=== PATIENT | male | born 1975 | race Caucasian/White ===

== ENCOUNTER 2020-04-29 02:13 | Outpatient (CLI) | payer OTHER, SELFPAY ==
[2020-04-29 12:43] LABS: Hemoglobin A1C 5.1 % (<5.7)
[2020-04-29 12:56] LABS: ALT 24 U/L (16-63); AST 15 U/L (15-37); Albumin 4.2 g/dL (3.4-5.0); Alkaline Phosphatase 54 U/L (46-116); Anion Gap 9.5 mmol/L (3-11); BUN 12 mg/dL (7-18); Bilirubin, Total 1.1 mg/dL (0.2-1.0); CO2 28.5 mmol/L (21.0-32.0); CREATININE 1.04 mg/dL (0.70-1.30); Calcium 8.7 mg/dL (8.5-10.1); Calculated LDL 39 mg/dL (<100); Chloride 106 mmol/L (98-107); Cholesterol 117 mg/dL (<200); Glucose 113 mg/dL (74-106); HDL Cholesterol 69 mg/dL (40-60); Potassium 4.1 mmol/L (3.5-5.1); Sodium 144 mmol/L (136-145); Total Protein 6.7 g/dL (6.4-8.2); Triglyceride 49 mg/dL (<150)
== END 2020-04-29 02:33 ==
PROVIDERS: PCP Nurse Practitioner Family; Visit Provider Nurse Practitioner Family
DX: I25.10 Atherosclerotic heart disease of native coronary artery without angina pectoris (principal); Z13.220 Encounter for screening for lipoid disorders; Z13.1 Encounter for screening for diabetes mellitus
CPT/HCPCS: 36415; 80053; 80061; 83036

== ENCOUNTER 2020-08-12 01:51 | Outpatient (CLI) | payer OTHER, SELFPAY ==
--- NOTE | 2020-08-12 10:32 | DI.MRI_ITS ---
EXAM: MR PELVIS WO CLINICAL HISTORY: Post-herniorrhaphy neuralgia, ?mesh displaced,RLQ/GROIN PAIN,R10.31,M79.2 TECHNIQUE: Multiplanar multisequence MRI of Pelvis was performed. CONTRAST MATERIAL: IV Contrast: None COMPARISON: No exams were available for comparison FINDINGS: Bones: There is no evidence of hip fracture, avascular necrosis of the hips, nor hip joint effusions . There is no significant signal abnormality at the level of the sacroiliac joints. No significant findings within the sacral canal. No osseous lesions evident. Musculotendinous structures: No abnormal intramuscular signal. No evidence of hip bursitis. No avul grey injuries evident. No abnormal signal in the visualized lower lumbar spine nor within the sacral canal. Soft tissue: Prostate gland is not enlarged. Seminal vesicles unremarkable. The urinary bladder is not distended. There is no evidence of inguinal at adenopathy nor intrapelvic adenopathy. No abnorm al fluid collection in the pelvis. No evidence of inguinal hernia. No aneurysms. No abnormal fluid collections. IMPRESSION: No significant findings on this MRI scan of pelvis. DATA REPOSITORY:
== END 2020-08-12 01:52 ==
LOC: DI 01:52
PROVIDERS: PCP Nurse Practitioner Family; Visit Provider Nurse Practitioner Family
DX: R10.31 Right lower quadrant pain (principal); M79.2 Neuralgia and neuritis, unspecified; G89.29 Other chronic pain
CPT/HCPCS: 72195

== ENCOUNTER 2021-02-13 19:20 | Outpatient (REF) | payer OTHER, SELFPAY ==
[2021-02-18 09:22] LABS: Codeine Negative ng/mL (Cutoff: 25); Dihydrocodeine 252 ng/mL (Cutoff: 25); Hydrocodone 1722 ng/mL (Cutoff: 25); Hydromorphone 97 ng/mL (Cutoff: 25); Morphine Negative ng/mL (Cutoff: 25); Naloxone Negative ng/mL (Cutoff: 25); Norhydrocodone 998 ng/mL (Cutoff: 25); Noroxycodone Negative ng/mL (Cutoff: 25); Noroxymorphone Negative ng/mL (Cutoff: 25); Opiates Interpretation Positive.
== END 2021-02-13 19:21 | disposition home or self-care (01) ==
LOC: LBN 19:20
PROVIDERS: PCP Nurse Practitioner Family; Visit Provider Nurse Practitioner Family
DX: R10.31 Right lower quadrant pain (principal); G89.29 Other chronic pain
CPT/HCPCS: 80361; 80362; 80365

== ENCOUNTER 2021-05-30 09:01 | Emergency (ER) | payer OTHER, SELFPAY ==
--- NOTE | 2021-05-30 09:00 | RT.EKG_ITS ---
APPROVED REPORT Exam: Resting ECG Reason for Exam: POSS STROKE Patient Location: E HR:72 bpm ECG Measurements Heart Rate 72 AXIS UT 137 P 63 QRSd 97 QRS 82 QT 396 T 28 QTc 433 Conclusion Sinus rhythm...normal P axis, V-rate 60- 99
[2021-05-30 09:11] VITALS: BP 153/89; PULSE 72; RESP 18; TEMP 37.2; O2SAT 99
[2021-05-30 09:17] VITALS: RESP 18
--- NOTE | 2021-05-30 09:30 | DI.CT_ITS ---
Exam(s) CT BRAIN NECK CTA EXAM: CT BRAIN NECK CTA CLINICAL HISTORY: left neck pain, left leg paresthesias. TECHNIQUE: Imaging Protocol: Axial CT angiography was performed with multi-slice acquisition and mu lti-planar and/or 3D reconstructions. CONTRAST MATERIAL: Intravenous: Omnipaque 350 Contrast volume:100 mL COMPARISON: No exams were available for comparison FINDINGS: CT Head W/O and W: Ventricles and Extra axial spaces: Normal in size and morphology for the patient's age. Hemorrhage: None. Cerebral parenchyma: No evidence of an acute territorial infarct. Midline shift: None. Brainstem/Cerebellum: Normal. Calvarium: Normal. Visualized Paranasal sinuses/Mastoids: There is mucosal thickening in the visualized paranasal sinuse s. There is a fluid level in the right sphenoid sinus. The mastoid air cells are clear. Soft Tissues: Unremarkable. Enhancement: Unremarkable. CTA Neck W: Common Carotid: Right: No dissection, occlusion or significant stenosis. Left: No dissection, occlusion or significant stenosis. External Carotid: Right: No occlusion or significant stenosis. Left: No occlusion or significant stenosis. Internal Carotid: Right: No dissection, occlusion or significant stenosis. Left: No dissection, occlusion or significant stenosis. Vertebral Artery: Right: No dissection, occlusion or significant stenosis. Left: No dissection, occlusion or significant stenosis. Lung Apices: Normal. The visualized pulmonary arteries and thoracic aorta are unremarkable. Bones: Within normal limits for the patient's age. Soft Tissues: Normal. Thyroid gland: Unremarkable. CTA Brain W: Internal Carotid Arteries: Normal. Anterior Cerebral Arteries: Right: No aneurysm, occlusion or significant stenosis. Left: No aneurysm, occlusion or significant stenosis. Middle Cerebral Arteries: Right: No aneurysm, occlusion or significant stenosis. Left: No aneurysm, occlusion or significant stenosis. Posterior Cerebral Arteries: Right: No aneurysm, occlusion or significant stenosis. Left: No aneurysm, occlusion or significant stenosis. Vertebral Arteries: Right: No aneurysm, occlusion or significant stenosis. Left: No aneurysm, occlusion or significant stenosis. Basilar Artery: No aneurysm, occlusion or significant stenosis. IMPRESSION: 1. No large vessel occlusion or significant stenosis on the CT angiography of the head. 2. No acute intracranial process. 3. Findings of paranasal sinus disease. 4. No occlusion or significant stenosis on the CT angiography of the neck. 5. Results of this exam have been verbally communicated with provider. RADIATION DOSE DELIVERED: 2,325.68mGy.cm Total DLP DATA REPOSITORY: All CT scans at this facility are submitted to the National Radiology Data Registry (NRDR) Dose Index Registry (DIR) with the [employer] (A[employer]). RADIATION OPTIMIZATION: All CT scans at this facility use at least one of these dose optimization te chniques: automated exposure control; mA and/or kV adjustment per patient size (includes targeted exa ms where dose is matched to clinical indication); or iterative reconstruction.
--- NOTE | 2021-05-30 09:45 | DI.RAD_ITS ---
Exam(s) XR PORTABLE CHEST AP EXAM: XR PORTABLE CHEST AP CLINICAL HISTORY: cva TECHNIQUE: 2D digital imaging was performed of the chest. One image was obtained. An AP view was ob tained. COMPARISON: CR PORTABLE CHEST ONE VIEW from 02/08/2014 CR PORTABLE CHEST ONE VIEW from 02/08/2014 FINDINGS: MEDIASTINUM: Normal. HEART: Normal. PULMONARY VASCULATURE: Normal. LUNGS: Clear. PLEURAL SPACE: No pleural effusion or pneumothorax. BONE:Within normal limits for the patient's age. OTHER FINDINGS:Normal. IMPRESSION: No acute pulmonary findings. DATA REPOSITORY: RADIATION DOSE DELIVERED:
[2021-05-30] MEDS: Omnipaque 350 MG/ML 100 ML BTL IJ (10:07)
[2021-05-30 10:22] LABS: Abs Immature Grans 0.03 10^3/uL (0.0-0.06); Absolute Basophil Count 0.07 10^3/uL (0.0-0.2); Absolute Eosinophil Count 0.19 10^3/uL (0.0-0.7); Absolute Lymphocyte Count 1.45 10^3/uL (1.2-3.4); Absolute Monocyte Count 0.55 10^3/uL (0.1-0.8); Basophils % 0.8; Eosinophils % 2.2; HCT 44.5 % (40.0-50.0); HGB 14.4 g/dL (13.5-17.5); Immature Grans % 0.4; Lymphocytes % 17.1; MCH 29.4 pg (27.0-33.0); MCHC 32.4 % (32.0-36.0); MPV 9.6 fL (8.0-11.0); Monocytes % 6.5; Nucleated RBC 0 %; Platelet Count 315 10^3/uL (130-400); RBC 4.89 10^6/uL (4.36-5.78); RDW 12.1 % (11.8-14.1); RDW-SD 40.5 fL; WBC 8.49 10^3/uL (4.4-10.8)
[2021-05-30 10:37] LABS: ALT 30 U/L (16-63); AST 26 U/L (15-37); Albumin 3.9 g/dL (3.4-5.0); Alkaline Phosphatase 62 U/L (46-116); Anion Gap 7.8 mmol/L (3-11); BUN 11 mg/dL (7-18); Bilirubin, Total 1.4 mg/dL (0.2-1.0); CO2 29.2 mmol/L (21.0-32.0); CREATININE 0.9 mg/dL (0.70-1.30); Calcium 8.9 mg/dL (8.5-10.1); Chloride 107 mmol/L (98-107); Glucose 110 mg/dL (74-106); Magnesium 1.9 mg/dL (1.8-2.4); Potassium 3.6 mmol/L (3.5-5.1); Sodium 144 mmol/L (136-145); Total Protein 6.7 g/dL (6.4-8.2)
[2021-05-30 10:39] LABS: Troponin I < 0.05 ng/mL (<0.06)
--- NOTE | 2021-05-30 10:45 | DI.MRI_ITS ---
Exam(s) MR BRAIN WO EXAM: MR BRAIN WO CLINICAL HISTORY: left leg paresthesia TECHNIQUE: Multiplanar multisequence MRI of the brain was performed. COMPARISON: CT CT BRAIN NECK CTA from 05/30/2021 FINDINGS: VENTRICLES AND EXTRA AXIAL SPACES: Normal in size and morphology for the patient's age. MIDLINE SHIFT: None. CEREBRAL PARENCHYMA: No focus of restricted diffusion to suggest acute infarct. No space-occupying le grey identified. HEMORRHAGE: None. BRAINSTEM/CEREBELLUM: Normal. CALVARIUM: Normal. VISUALIZED PARANASAL SINUSES/MASTOIDS:Mucosal thickening in visualized paranasal sinuses. [place] OF [place]: Normal flow void. PITUITARY GLAND: Unremarkable. OTHER FINDINGS: None. IMPRESSION: 1. No acute intracranial process. 2. Results of this exam have been verbally communicated with provider. DATA REPOSITORY:
--- NOTE | 2021-05-30 10:53 | ED.GENADUL_ITS ---
Discharge Plan Disposition Patient Disposition: HOME Condition: Stable Discharge Details Clinical Impression: Brain TIA Primary Care Provider: Zhanna Jimenez ED Provider: Holly Hooper Home Meds and New Rx's Prescriptions: New clopidogrel [Plavix] 75 mg tablet 75 mg PO DAILY Qty: 30 RF: 0 Continued clotrimazole 1 % cream 1 applic TP BID 28 Days Qty: 45 RF: 3 hydrocodone-acetaminophen 5-325 mg tablet 1 tab PO DAILY MDD 1 tab PRN (Reason: pain) Qty: 30 RF: 0 Narcan 4 mg/actuation spray,non-aerosol 1 spray intranasal Q2-3M PRN (Reason: opioid overdose) Qty: 2 RF: 4 aspirin [Aspirin Low-Strength] 81 MG tablet,chewable 81 mg PO DAILY RF: 0 atorvastatin 80 mg tablet 80 mg PO DAILY Qty: 90 RF: 4 metoprolol succinate 25 mg tablet extended release 24 hr 25 mg PO DAILY Qty: 90 RF: 4 mirtazapine [Remeron] 30 mg tablet 30 mg PO QPM Qty: 90 RF: 4 nitroglycerin 0.4 mg tablet, sublingual 0.4 mg SL ONCE PRN (Reason: chest pain) Qty: 60 RF: 0 clonazepam [Klonopin] 1 mg tablet 1 mg PO BID Qty: 60 RF: 0 Discontinued omeprazole 40 mg capsule,delayed release(DR/EC) 40 mg PO BID Qty: 180 RF: 4 Discharge Instructions Additional Instructions: Please follow-up with the neurologist listed below Please also follow-up with your primary care physician Add Plavix to your regimen of medication until you are reassessed by neurology or your primary care physician Please return immediately should you have recurrent, new, or worsening complaints Discontinue your omeprazole temporarily Referrals: Zhanna Jimenez NP [Primary Care Provider] - Felicitas Santiago MD [ [facility] STAFF PHYSICIAN] - Discharge Data Discharge Date/Time-TO BE ENTERED AT DEPARTURE: 05/30/21 13:13 Medical Decision Making Patient with nonfocal neurological exam Given initial presenting symptoms of left lower extremity paresthesia, patient did have CTA head and cervical spine that did not show acute abnormality per radiology interpretation in my review EKG, troponin, and diagnostic labs do not show acute abnormality, patient appears well, he is conversive in complete sentences MRI ordered for completeness without acute abnormality Had echocardiogram in 2013 that did not show valvular abnormality On appropriate regimen with Lipitor, metoprolol, and aspirin, will add Plavix Will refer to neurology for close outpatient reassessment Completely asymptomatic throughout the entirety of this evaluation Spoke with and patient and given low threshold to return with new or worsening complaints Patient is alert, oriented, of decisional capacity Medical Records Medical records reviewed: Yes I reviewed the patient's medical records. Lab Data Lab results reviewed: Yes I reviewed the patient's lab results. HPI General Mode of arrival: ambulatory . Date/Time Provider Initiated Documentation: 05/30/21 09:05 . Limitations to Documentation: no limitations . Information obtained by: patient . HPI Narrative: This 45-year-old male presents with report of paresthesias to his left lower extremity when he awoke. He states that yesterday he had some left lateral neck pain. He states that this lasted approximately 10 minutes and then resolved completely. He is currently asymptomatic. He denies prior history of similar symptoms in the past. He denies any chest pain or shortness of breath. He denies any falls or injuries. He denies anticoagulation. He does take an aspirin daily. He denies any fever or chills. Related Data Home Medications Medication Instructions Recorded Confirmed aspirin [Aspirin Low-Strength] 81 mg PO DAILY tab-cap 03/19/14 05/30/21 clotrimazole 1 % topical cream 1 applic TP BID 28 Days #45 gm 08/15/19 05/30/21 atorvastatin 80 mg tablet 80 mg PO DAILY #90 tab-cap 08/16/20 05/30/21 metoprolol succinate 25 mg 25 mg PO DAILY #90 tab 08/16/20 05/30/21 tablet,extended release 24 hr mirtazapine 30 mg tablet 30 mg PO QPM #90 tab 08/16/20 05/30/21 nitroglycerin 0.4 mg sublingual 0.4 mg SL ONCE PRN #60 tab 08/16/20 05/30/21 tablet naloxone 4 mg/actuation nasal spray 1 spray INTRANASAL Q2-3M PRN #2 ea 02/13/21 05/30/21 clonazepam 1 mg tablet 1 mg PO BID #60 tab-cap 05/02/21 05/30/21 hydrocodone 5 mg-acetaminophen 325 1 tab PO DAILY PRN #30 tab MDD 1 05/19/2104/10 mg tablet tab clopidogrel [Plavix] 75 mg PO DAILY #30 tab 05/30/21 Previous Rx's Medication Instructions Recorded clotrimazole 1 % topical cream 1 applic TP BID 28 Days #45 gm 08/15/19 atorvastatin 80 mg tablet 80 mg PO DAILY #90 tab-cap 08/16/20 metoprolol succinate 25 mg 25 mg PO DAILY #90 tab 08/16/20 tablet,extended release 24 hr mirtazapine 30 mg tablet 30 mg PO QPM #90 tab 08/16/20 nitroglycerin 0.4 mg sublingual 0.4 mg SL ONCE PRN #60 tab 08/16/20 tablet naloxone 4 mg/actuation nasal spray 1 spray INTRANASAL Q2-3M PRN #2 ea 02/13/21 clonazepam 1 mg tablet 1 mg PO BID #60 tab-cap 05/02/21 hydrocodone 5 mg-acetaminophen 325 1 tab PO DAILY PRN #30 tab MDD 1 05/19/21 mg tablet tab clopidogrel [Plavix] 75 mg PO DAILY #30 tab 05/30/21 Allergies Allergy/AdvReac Type Severity Reaction Status Date / Time pregabalin Allergy Severe TONGUE Verified 05/30/21 09:16 SWELLING erythromycin base Allergy Unknown Verified 05/30/21 09:16 gabapentin AdvReac Severe GI UPSET Verified 05/30/21 09:16 General Stated Complaint: CVA/TIA JACOB: 2 Review of Systems All systems reviewed & are unremarkable except as noted in HPI and below PFSH All Active Problems (Updated 05/30/21 @ 13:04 by JARED Peña) Brain TIA (Acute) Coronary artery disease (Chronic) Chronic pain of right groin (Chronic) Major depressive disorder (Chronic) Generalized anxiety disorder with panic attacks (Chronic) Gastroesophageal reflux disease (Chronic) Active Problem List Coronary artery disease (Chronic) Chronic pain of right groin (Chronic) Major depressive disorder (Chronic) Generalized anxiety disorder with panic attacks (Chronic) Gastroesophageal reflux disease (Chronic) Medical History Cigarette smoker STEMI (ST elevation myocardial infarction) S/p NANDO to RCA x 3 2013 Surgical History S/P excision of lipoma Right arm S/P left inguinal hernia repair (01/06/21) S/P right inguinal hernia repair (12/31/10) S/P right knee arthroscopy Family History Mother , AGE 63 Acute myocardial infarction Heart disease Father , AGE 63 Acute myocardial infarction Heart disease Sister , AGE 34 Cervical cancer Sister Hypertension Sister No problems noted. Sister No problems noted. Brother , AGE 43 PTSD (post-traumatic stress disorder) Substance abuse Brother No problems noted. Brother No problems noted. Maternal Grandfather Cancer Maternal Grandmother , AGE 84 No problems noted. Son Depression Son No problems noted. Social History Smoking/Tobacco Use Status: Former Tobacco Use Quit Date: 08/12/14 Tobacco: How many years used: 29 Second Hand Exposure: Yes Smoking risk assessment performed?: Yes Alcohol Intake: former Drug use: Daily Substance use type: marijuana Caregiver/Support person: No Household members: spouse and children Housing: house Communication Needs: Corrective Lenses Do you need help understanding health information?: Often Pets and animals: Yes Pets and animals: cat(s) Sexually active: Yes Do you think of yourself as: straight/heterosexual Current gender identity: male What is your relationship status?: How often do you talk on the phone with friends or family?: never How often do you get together with friends or relatives?: once per week How often do you attend taoism or anabaptism services?: decline to answer Do you belong to any clubs or organized social groups?: no Panel score (0-1 are the most socially isolated patients): 1 Duration: < 15 minutes/day Frequency: does not exercise Marjorie/Baptism: None Special marjorie needs: No Seatbelt use: always Helmet use: Yes Helmet use: sometimes 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 Exam Const General: cooperative, comfortable and no acute distress HENMT Head: normal to inspection Eyes Pupils: PERRL EOM: EOM intact bilaterally Neck Other: No carotid bruit Resp Effort & Inspection: normal respiratory effort Auscultation: clear to auscultation bilaterally Cardio Rate: regular rate Rhythm: regular rhythm GI Other: Nontender abdominal exam Skin General skin exam: no rashes or lesions noted Neuro General: patient alert and patient oriented x3 Cognition: normal cognition Speech: speech normal Gait: normal gait Motor: strength 5/5 throughout Other: Strength and sensation intact distally, ambulatory ability complete, negative pronator drift, negative [id number], negative tension Extrem Other: Distal pulses intact Course Vital Signs Vital signs: Vital Signs Temperature 37.2 C 05/30/21 09:11 Pulse 72 05/30/21 09:11 Respiratory Rate 18 05/30/21 09:11 Blood Pressure 153/89 H 05/30/21 09:11 Pulse Oximetry 99 05/30/21 09:11 Temperature 37.2 C 05/30/21 09:11 Temperature Source Oral 05/30/21 09:11 Pulse 72 05/30/21 09:11 Respiratory Rate 18 05/30/21 09:17 Respiratory Effort 05/30/21 09:17 Respiratory Depth Normal 05/30/21 09:17 Respiratory Pattern Normal 05/30/21 09:17 Blood Pressure 153/89 H 05/30/21 09:11 Blood Pressure Position Supine 05/30/21 09:11 Pulse Oximetry 99 05/30/21 09:11 Oxygen Delivery Method Room Air 05/30/21 09:11 Oxygen Flow Rate 0 05/30/21 09:11 Pain Level 4 05/30/21 09:11 Lab/Test Results Lab/Test Results: Laboratory Tests Range/Units 05/30/21 05/30/21 09:22 09:22 WBC (4.4-10.8) 10^3/uL 8.49 RBC (4.36-5.78) 10^6/uL 4.89 Hgb (13.5-17.5) g/dL 14.4 Hct (40.0-50.0) % 44.5 MCV (80-95) fL 91.0 MCH (27.0-33.0) pg 29.4 MCHC (32.0-36.0) % 32.4 RDW (11.8-14.1) % 12.1 Plt Count (130-400) 10^3/uL 315 MPV (8.0-11.0) fL 9.6 Immature Gran % 0.4 Neutrophils % 73.0 Lymphocytes % 17.1 Monocytes % 6.5 Eosinophils % 2.2 Basophils % 0.8 Nucleated RBC % % 0 Absolute Neutrophils (1.2-6.7) 10^3/uL 6.20 Absolute Lymphocytes (1.2-3.4) 10^3/uL 1.45 Absolute Monocytes (0.1-0.8) 10^3/uL 0.55 Absolute Eosinophils (0.0-0.7) 10^3/uL 0.19 Absolute Basophils (0.0-0.2) 10^3/uL 0.07 Sodium (136-145) mmol/L 144 Potassium (3.5-5.1) mmol/L 3.6 Chloride (98-107) mmol/L 107 Carbon Dioxide (21.0-32.0) mmol/L 29.2 Anion Gap (3-11) mmol/L 7.8 BUN (7-18) mg/dL 11 Creatinine (0.70-1.30) mg/dL 0.9 Estimated GFR/1.73 m2 (mL/min/1.73m2) >= 60.00 Glucose (74-106) mg/dL 110 H Calcium (8.5-10.1) mg/dL 8.9 Magnesium (1.8-2.4) mg/dL 1.9 Total Bilirubin (0.2-1.0) mg/dL 1.4 H AST (15-37) U/L 26 ALT (16-63) U/L 30 Alkaline Phosphatase (46-116) U/L 62 Troponin I (<0.06) ng/mL < 0.05 Total Protein (6.4-8.2) g/dL 6.7 Albumin (3.4-5.0) g/dL 3.9 PAWSS Have you Been Recently Intoxicated or Drunk Within the Last 30 days?: Yes Have you Ever Experienced Previous Episodes of Alcohol Withdrawal?: No Have you ever Experienced Withdrawal Seizures?: No Have you ever Experienced Delirium Tremens(DT)s?: No Have you ever undergone Alcohol Rehabilitation Treatment (i.e, inpt ot outpatient treatment programs)?: No Have you ever Experienced Blackouts?: No Have you ever Combined Alcohol with other Downers within the last 90 days?: No Have you ever Combined Alcohol with any other Substance of Abuse during the last 90 days?: No Positive Blood Alcohol level on Presentation? [PCS.BAL]: No Evidence of Increased Autonomic Activity (i.e. HR>120, tremor, sweating, agitation, nausea)?: No Result: 1
[2021-05-30 11:02] VITALS: BP 143/82; PULSE 65; RESP 18; O2SAT 97
--- NOTE | 2021-05-30 13:05 | NUR.NOTE ---
Nursing NoteREFERRAL TO [facility] :
== END 2021-05-30 13:13 | disposition home or self-care (01) ==
PROVIDERS: Emergency Provider Physician Assistant; PCP Nurse Practitioner Family
DX: G45.9 Transient cerebral ischemic attack, unspecified (principal); R20.2 Paresthesia of skin; M54.2 Cervicalgia; Z87.891 Personal history of nicotine dependence
CPT/HCPCS: 36415; 36416; 70496; 70498; 80053; 82962; 93005; 99285; 70551; 71045; 83735; 84484; 85025; 93010; J3490

== ENCOUNTER 2023-03-17 21:05 | Outpatient (REF) | payer BC, SELFPAY ==
[2023-03-17 22:50] LABS: *AMPHETAMINES SCREEN URINE Negative (Negative); *BARBITURATES SCREEN URINE Negative (Negative); *BENZODIAZEPINES SCREEN URINE Negative (Negative); Cannabinoids THC Positive (Negative); Cocaine Screen,Urine Negative (Negative); METHADONE URINE SCREEN Negative (Negative); OPIATES URINE SCREEN Negative (Negative)
[2023-03-17 23:11] LABS: Tricyclic Antidepressants Negative (Negative)
== END 2023-03-17 21:06 | disposition home or self-care (01) ==
LOC: LBN 21:05
PROVIDERS: PCP Nurse Practitioner Family; Visit Provider Nurse Practitioner Family
DX: Z00.00 Encounter for general adult medical examination without abnormal findings (principal); I10 Essential (primary) hypertension; F41.1 Generalized anxiety disorder; Z79.899 Other long term (current) drug therapy; R82.5 Elevated urine levels of drugs, medicaments and biological substances
CPT/HCPCS: 80307

== ENCOUNTER 2024-05-01 18:35 | Outpatient (REF) | payer BC, SELFPAY ==
[2024-05-01 14:36] LABS: *AMPHETAMINES SCREEN URINE Negative (Negative); *BARBITURATES SCREEN URINE Negative (Negative); *BENZODIAZEPINES SCREEN URINE Negative (Negative); Cannabinoids THC Positive (Negative); Cocaine Screen,Urine Negative (Negative); METHADONE URINE SCREEN Negative (Negative); OPIATES URINE SCREEN Negative (Negative)
[2024-05-01 14:37] LABS: Tricyclic Antidepressants Negative (Negative)
== END 2024-05-01 18:36 | disposition home or self-care (01) ==
LOC: LBN 18:35
PROVIDERS: PCP Nurse Practitioner Family; Visit Provider Nurse Practitioner Family
DX: F41.1 Generalized anxiety disorder (principal); F41.0 Panic disorder [episodic paroxysmal anxiety]
CPT/HCPCS: 80307